=== PATIENT | female | born 2000 ===

== ENCOUNTER 2023-01-01 10:43 | Emergency (ER) | payer OTHER ==
[~2023-01-01] VITALS: Ht 160 cm; Wt 69.4 kg
[2023-01-01 10:51] VITALS: BP 117/67
[2023-01-01 11:53] LABS: APPEARANCE,URINE CLEAR (CLEAR); BILIRUBIN,URINE NEGATIVE (NEGATIVE); BLOOD, URINE 2+ (NEGATIVE); COLOR,URINE YELLOW (YELLOW); LEUKOCYTE ESTERASE ,URINE NEGATIVE (NEGATIVE); NITRITE, URINE NEGATIVE (NEGATIVE); UGLUCOSE NEGATIVE (NEGATIVE)
--- NOTE | 2023-01-01 12:09 | NUR ---
VAGINAL BLEEDING X 3 WEEKS, AVERAGING SANITARY PAD CHANGES EVERY 30 MINUTES WHEN MOVING AND WALKING.
[2023-01-01] MEDS ORDERED: KETOROLAC 60 MG/2 ML VIAL IM ONE (12:15)
[2023-01-01] MEDS ORDERED: IBUP-2213 PO (12:35)
[2023-01-01] MEDS ORDERED: MEDR10TA PO (12:35)
[2023-01-01 12:41] VITALS: BP 117/67
--- NOTE | 2023-01-01 12:41 | NUR ---
Patient discharged with v/s stable. Written and verbal after care instructions given and explained. Patient alert, oriented and verbalized understanding of instructions. Ambulatory with steady gait. All questions addressed prior to discharge. ID band removed. Patient advised to follow up with PMD. Rx of PROVERA, IBUPROFEN given. Patient educated on indication of medication including possible reaction and side effects. Opportunity to ask questions provided and answered.
== END 2023-01-01 12:41 | disposition home or self-care (01) ==
LOC: MED 10:43
DX: N93.8 Other specified abnormal uterine and vaginal bleeding (principal); R42 Dizziness and giddiness
CPT/HCPCS: 81003; 81025; 99283; J1885